=== PATIENT | male | born 1995 | race Caucasian/White ===

== ENCOUNTER 2017-08-06 02:47 | Emergency (ER) | payer OTHER ==
[2017-08-06] MEDS ORDERED: Fentanyl 100 MCG/2 ML VIAL ONE (02:59)
[2017-08-06 03:06] LABS: #Basophils 0.1 thou/uL (0.0-0.2); #Lymphocytes 3.1 thou/uL (1.20-3.40); #Monocytes 0.4 thou/uL (0.11-0.59); %Eosinophils 0.6 % (0.0-10.0); %Lymphocytes 40.9 % (21.0-51.0); %Monocytes 5.2 % (0.0-10.0); %Neutrophils 52.3 % (42.0-75.0); Hemoglobin 16.2 g/dL (14.0-18.0); Mean Corpuscular HGB CONC 34.7 g/dL (32.0-36.0); Mean Corpuscular Hemoglobin 29.1 pg (27.0-31.0); Mean Corpuscular Volume 83.9 fL (78.0-98.0); Mean Platelet Volume 6.9 fL (7.4-10.4); Platelet Count 276 thou/uL (130-400); RBC Distribution Width 11.6 % (11.5-14.5); Red Blood Cell (RBC) Count 5.56 mill/uL (4.70-6.10); White Blood Cell (WBC) Count 7.7 thou/uL (4.8-10.8)
[2017-08-06 03:24] LABS: ALT (SGPT) 27 U/L (8-55); AST (SGOT) 23 U/L (5-34); Albumin 4.9 g/dL (3.5-5.0); Alcohol 180 mg/dL (Less than 10); Alkaline Phosphatase 69 U/L (40-150); Anion Gap 17 mmol/L (10-20); BUN (Urea Nitrogen) 11 mg/dL (8.9-20.6); Bilirubin, Total 0.6 mg/dL (0.2-1.2); Calc. Creatinine Clearance 0 mL/min (70-130); Calcium 9.4 mg/dL (7.8-10.44); Carbon Dioxide 22 mmol/L (22-29); Chloride 109 mmol/L (98-107); Estimated GFR-MDRD Greater than 90; Glucose 99 mg/dL (70-105); Potassium 3.9 mmol/L (3.5-5.1); Protein, Total 7.9 g/dL (6.0-8.3); Sodium 144 mmol/L (136-145)
[2017-08-06] MEDS ORDERED: Ibuprofen 800 MG TAB ONE (07:45)
--- NOTE | 2017-08-06 07:48 | RAD ---
THREE VIEWS LEFT ELBOW: COMPARISON: None. HISTORY: Left elbow pain. FINDINGS: Three views left elbow show n evidence of acute fracture or dislocation. FINDINGS: Three views left elbow show no evidence of acute fracture or dislocation. No obvious elbow effusion is seen but evaluation is limited as the lateral radiograph is not actually lateral. No degenerative changes are seen. IMPRESSION: No evidence of acute osseous abnormality. POS: [facility]
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
== END 2017-08-06 08:42 | disposition home or self-care (01) ==
LOC: ERS 02:47
DX: S09.90XA Unspecified injury of head, initial encounter (principal); S16.1XXA Strain of muscle, fascia and tendon at neck level, initial encounter; S50.812A Abrasion of left forearm, initial encounter; F10.129 Alcohol abuse with intoxication, unspecified; V89.2XXA Person injured in unspecified motor-vehicle accident, traffic, initial encounter
CPT/HCPCS: 29105; 70450; 71260; 72125; 74177; 80053; 80307; 85025; 96361; 96374; G0390; J3010